=== PATIENT | male | born 1945 | race Caucasian/White ===

== ENCOUNTER 2023-12-02 18:36 | Observation (INO) | payer MEDICARE, MEDICAID, SELFPAY ==
[2023-12-02] VITALS (13 sets, daily range): BP systolic 124–156; BP diastolic 71–106; PULSE 71–93; RESP 18–30; TEMP 36.3–36.8; O2SAT 88–99; BMI 23.1
--- NOTE | 2023-12-02 19:01 | DI.RAD.S_ITS ---
PROCEDURE: XR CHEST 1V INDICATIONS: chest pain TECHNIQUE: One view of the chest was acquired. COMPARISON: [facility], CT, CT CHEST ABDOMEN PELVIS WITH CONTRAST, 07/05/2023, 12:55. FINDINGS: Surgical changes and devices: None. Lungs and pleura: Bilateral emphysematous changes. Scarring at the lung bases. Superimposed right basilar consolidation is not excluded. No pleural effusions or pneumothorax. No pleural effusion or pneumothorax. Mediastinum: Mediastinal contours appear normal. Heart size is normal. Bones and chest wall: No suspicious bony lesions. Overlying soft tissues appear unremarkable. IMPRESSION: Patchy right lower lobe opacities may be related to chronic emphysematous changes and scarring versus superimposed acute consolidation. Approved by: Louie Portillo M.D. on 12/02/2023 at 19:58
--- NOTE | 2023-12-02 19:01 | EKG_ITS ---
[address] [address] Test Date: 2023-12-02 Pat Name: Gurpreet Gill Department: Room: Gender: Male Quantitative Developer: ANJANA : 1945 Requested By: Order Number: [id number] Reading MD: Fabian Kemp Measurements Intervals [place] Rate: 80 P: [place]: QRS: -35 QRSD: 106 T: 43 QT: 416 QTc: 479 Interpretive Statements Sinus rhythm with frequent PACs Left axis deviation Incomplete right bundle branch block Cannot rule out Anterior infarct , age undetermined Electronically Signed On 12-05-2023 16:33:47 PDT by Fabian Kemp
--- NOTE | 2023-12-02 19:30 | PC.NURSE ---
pt recently moved here is on home O2 but has run out of oxygen, he called the company but they could not bring any out until Tue. pt is SOB d/t not having the oxygen but also admits to a recent weight gain of 20 lbs. pt speaking in complete sentences
[2023-12-02 19:40] LABS: Add Manual Diff / Slide Review NO; Basophils Absolute Auto 100 /uL (0-100); Basophils Percent Auto 0.6 % (0-2); Eosinophils Absolute Auto 100 /uL (0-450); Eosinophils Percent Auto 0.6 % (2-4); Hematocrit 40.1 % (41-53); Hemoglobin 13.1 g/dL (13.5-17.5); Lymphocytes Absolute Auto 800 /uL (1100-4500); Lymphocytes Percent Auto 6.5 % (25-40); Mean Corpuscular HGB Conc 32.6 % (30-36); Mean Corpuscular Hemoglobin 31.3 PG (26-34); Monocytes Absolute Auto 1200 /uL (0-900); Monocytes Percent Auto 9.7 % (3-14); Neutrophils Absolute Auto 10500 /uL (1500-7000); Neutrophils Percent Auto 82.6 % (50-75); Platelet Count 233 X10^3/uL (150-400); Red Blood Cell Count 4.18 X10^6/uL (4.5-5.9); Red Cell Distribution Width 14.4 % (11.6-14.8); White Blood Cell Count 12.7 X10^3/uL (4.5-11.0)
[2023-12-02 19:46] LABS: INR 1.2 (0.9-1.3); Prothrombin Time 13.8 SECONDS (9.4-12.5)
[2023-12-02 19:49] LABS: PTT Partial Thromboplastin Tim 31 SECONDS (25.1-36.5)
[2023-12-02 19:50] LABS: Alanine Aminotransferase 36 IU/L (<50); Albumin 3.7 g/dL (3.5-5.0); Albumin Globulin Ratio 1.2 (1.0-2.8); Alkaline Phosphatase 122 U/L (38-126); Aspartate Aminotransferase 39 IU/L (17-59); BUN Creatinine Ratio 29.5 (6-22); Bilirubin Total 1.1 mg/dL (0.2-1.3); Blood Urea Nitrogen 26 mg/dL (9-20); Calcium 8.7 mg/dL (8.4-10.2); Carbon Dioxide 34 mmol/L (22-32); Chloride 101 mmol/L (98-107); Creatine Kinase 148 U/L (55-170); Estimated Glomerular Filt Rate > 60 mL/min (>60); Globulin 3.2 g/dL (1.7-4.1); Glucose 168 mg/dL (80-110); HEMOLYSIS < 15 (0-50); Lipase 27 U/L (23-300); Magnesium 2.1 mg/dL (1.6-2.3); Potassium 4.2 mmol/L (3.4-5.1); Sodium 138 mmol/L (137-145); Total Protein 6.9 g/dL (6.3-8.2)
[2023-12-02 19:57] LABS: NT-proBNP (BNP-Adult 18+) 4490 pg/mL (<450)
[2023-12-02 20:01] LABS: Troponin I 0.035 ng/mL (0.01-0.034)
--- NOTE | 2023-12-02 21:12 | ED_ITS ---
HPI - General Adult General Chief complaint: Shortness of Breath/Dyspnea Stated complaint: sent by PCP, leg swelling, rapid heart beat Time Seen by Provider: 12/02/23 19:15 Source: patient, RN notes reviewed and old records reviewed Mode of arrival: Wheelchair Limitations: no limitations History of Present Illness HPI narrative: 78-year-old male with history of hypertension, COPD on home O2 typically 2 L. Patient states has had increasing shortness of breath for the past week, increasing swelling of his lower extremities and now weepage. Patient has had increasing O2 requirements 3-4 L for the past 3 days above his normal 1-2. Patient denies any fevers. States little bit of chest pressure which he states comes and goes has had this for very long time. He states little bit more short of breath. He states his work of breathing isn't significantly hard but he feels more weak and run down. No nausea or vomiting. He has been constipated but passing flatus. No new urinary symptoms. Patient states he has had some swelling in his legs but not this bad in the past. Patient does note that he ran out of his oxygen because he recently moved has been using it more than typical. He has called the company they will not delivered until Tuesday he states he did not realize they only deliver on Wednesdays here locally. Patient's home medications include albuterol, he was recently prescribed a Z-Cliff for COPD exacerbation of the 22 of November, Dulera, finasteride and tamsulosin. He has not on any water pills that he is aware of. No known cardiac history. No known drug allergies. Does continue to smoke a pack and a half daily. No regular alcohol, no recreational drugs. Dr. Lockhart through [facility] as his primary care physician. He is accompanied by his friend who is also acting as his transportation escort and who he moved in with. Related Data Home Medications Medication Instructions Recorded Confirmed albuterol sulfate 90 mcg/actuation 2 puff inhalation Q6H 12/03/23 12/03/23 aerosol inhaler mometasone-formoterol HFA 100 2 puff inhalation BID 12/03/23 12/03/23 mcg-5 mcg/actuation aerosol inhaler (Dulera) tamsulosin 0.4 mg capsule 0.8 mg PO DAILY 12/03/23 12/03/23 Allergies Allergy/AdvReac Type Severity Reaction Status Date / Time No Known Drug Allergies Allergy Verified 12/02/23 18:53 Review of Systems Review of Systems ROS Unobtainable: All systems reviewed & are unremarkable except as noted in HPI and below Patient History Social History household members: friend(s) Smoking Status: Current every day smoker alcohol intake: current Smoking Status: Current every day smoker Substance Use Type: does not use Exam Narrative Exam Narrative: GENERAL: Alert and oriented x three, elderly appearing male mild distress, HEENT: Head normocephalic, atraumatic, EOMI, pupils reactive, face symmetric, moist mucous membranes NECK: Supple, full range of motion CARDIOVASCULAR: Regular rate and rhythm without murmurs, rubs or gallops. 2+ bilateral lower extremity edema that tracked up above the knees, patient has some mild venous stasis changes. There is some slight weepage bilaterally. RESPIRATORY: Breath sounds equal bilaterally, scant wheeze bilaterally, no rhonchi or rales. No tachypnea. No accessory muscle use. Patient is on O2 at 4 L and at 92%. ABDOMEN: Soft, nontender. Normoactive bowel sounds all 4 quadrants. No guarding or rebound, rigidity, no mass : No CVA tenderness EXTREMITIES: Normal range of motion. Neurovascularly intact NEUROLOGICAL: Cranial nerves II through XII grossly intact. Moving all extremities SKIN: Warm, dry, no petechiae, no rashes or lesions. Initial Vital Signs Initial Vital Signs: Vital Signs Temperature 98.3 F 12/02/23 18:53 Pulse Rate 78 12/02/23 18:53 Respiratory Rate 28 H 12/02/23 18:53 Blood Pressure 130/71 12/02/23 18:53 Pulse Oximetry 91 12/02/23 18:53 Oxygen Delivery Method Room Air 12/02/23 18:53 Course Orders Ordered: ED Orders 12/02/23 21:28 Trop I [Troponin I] Stat Acetaminophen (Acetaminophen 325 Mg Tablet) 650 mg PO Q6H PRN PRN Reason: Fever/Mild Pain (1-3) Hydrocodone Bitart/Acetaminophen (Hydrocodone/Acet 5/325 Tablet) 1 tab PO Q4H PRN PRN Reason: Pain, Moderate (4-6) Albuterol (Albuterol 2.5 Mg/3 Ml Neb (Adult)) 2.5 mg INH [id number] [facility] Albuterol (Albuterol 2.5 Mg/3 Ml Neb (Adult)) 2.5 mg INH Q2HR PRN PRN Reason: Shortness Of Breath Aspirin (Aspirin Ec 81 Mg Tablet) 81 mg PO DAILY [facility] Budesonide (Budesonide 0.5 Mg/2 Ml Neb) 0.5 mg INH RTBID [facility] Enoxaparin Sodium (Enoxaparin 40 Mg/0.4 Ml Syringe) 40 mg SUBCUT DAILY [facility] Furosemide (Furosemide 40 Mg/4 Ml Vial) 40 mg IV Q12HR [facility] Magnesium Hydroxide (Magnesium Hydroxide 30 Ml Udc) 30 ml PO DAILY PRN PRN Reason: Constipation Naloxone HCl (Naloxone 0.4 Mg/Ml Vial) 0.2 mg IV Q2MIN PRN PRN Reason: Opiate Reversal Nicotine (Nicotine 14 Patch) 14 mg TOP DAILY [facility] Ondansetron HCl (Ondansetron 4 Mg/2 Ml Inj) 4 mg IV Q8HR PRN PRN Reason: Nausea And Vomiting Tamsulosin HCl (Tamsulosin 0.4 Mg Capsule) 0.8 mg PO DAILY [facility] Discontinued Medications Acetaminophen (Acetaminophen 325 Mg Tablet) 650 mg PO Q6H PRN PRN Reason: Fever/Mild Pain (1-3) Albuterol (Albuterol Hfa Mdi 60 Puff/8 Gm Inhaler) 2 puff INH Q6H [facility] Last Admin: 12/03/23 05:32 Dose: Not Given Documented By: Aspirin (Aspirin 81 Mg Chew Tab) 324 mg PO NOW ONE Stop: 12/02/23 19:02 Last Admin: 12/02/23 22:26 Dose: Not Given Documented By: JO ANN Enoxaparin Sodium (Enoxaparin 40 Mg/0.4 Ml Syringe) 40 mg SUBCUT DAILY [facility] Furosemide (Furosemide 40 Mg/4 Ml Vial) 40 mg IV NOW ONE Stop: 12/02/23 21:14 Last Admin: 12/02/23 21:24 Dose: 40 mg Documented By: JO ANN Ceftriaxone Sodium 2,000 mg/ (Sodium Chloride) 100 mls @ 200 mls/hr IV NOW ONE Stop: 12/02/23 22:30 Last Infusion: 12/02/23 23:29 Dose: 0 mls/hr Documented By: JO ANN Admin: 12/02/23 23:12 Dose: 200 mls/hr Documented By: JO ANN Naloxone HCl (Naloxone 0.4 Mg/Ml Vial) 0.2 mg IV Q2MIN PRN PRN Reason: Opiate Reversal Nicotine (Nicotine 21 Mg Patch) 21 mg TOP NOW ONE Stop: 12/02/23 21:30 Last Admin: 12/02/23 22:48 Dose: 21 mg Documented By: JO ANN Vital Signs Vital signs: Vital Signs - 8 hr 12/02/23 22:30 12/02/23 22:30 12/02/23 22:42 Pulse Rate 87 Respiratory Rate 25 H Blood Pressure 153/106 H 156/77 H Pulse Oximetry 97 Medical Decision Making Lab Data 12/02/23 19:14 12/02/23 19:14 Labs: Lab Results 12/02/23 12/02/23 Range/Units 19:14 21:28 WBC 12.7 H (4.5-11.0) X10^3/uL RBC 4.18 L (4.5-5.9) X10^6/uL Hgb 13.1 L (13.5-17.5) g/dL Hct 40.1 L (41-53) % MCV 96.0 (80-100) fL MCH 31.3 (26-34) PG MCHC 32.6 (30-36) % RDW 14.4 (11.6-14.8) % Plt Count 233 (150-400) X10^3/uL Neut % (Auto) 82.6 H (50-75) % Lymph % (Auto) 6.5 L (25-40) % [place] % (Auto) 9.7 (3-14) % Eos % (Auto) 0.6 L (2-4) % Baso % (Auto) 0.6 (0-2) % Neut # (Auto) 43618 H (8653-9737) /uL Lymph # (Auto) 800 L (8432-6828) /uL [place] # (Auto) 1200 H (0-900) /uL Eos # (Auto) 100 (0-450) /uL Baso # (Auto) 100 (0-100) /uL PT 13.8 H (9.4-12.5) SECONDS INR 1.2 (0.9-1.3) APTT 31 (25.1-36.5) SECONDS Sodium 138 (137-145) mmol/L Potassium 4.2 (3.4-5.1) mmol/L Chloride 101 (98-107) mmol/L Carbon Dioxide 34 H (22-32) mmol/L BUN 26 H (9-20) mg/dL Creatinine 0.88 (0.66-1.25) mg/dL Estimated GFR > 60 (>60) mL/min BUN/Creatinine Ratio 29.5 H (6-22) Glucose 168 H (80-110) mg/dL Calcium 8.7 (8.4-10.2) mg/dL Magnesium 2.1 (1.6-2.3) mg/dL Total Bilirubin 1.1 (0.2-1.3) mg/dL AST 39 (17-59) IU/L ALT 36 (<50) IU/L Alkaline Phosphatase 122 (38-126) U/L Total Creatine Kinase 148 (55-170) U/L Troponin I 0.035 H 0.037 H (0.01-0.034) ng/mL NT-Pro-B Natriuret Pep 4490 H (<450) pg/mL Total Protein 6.9 (6.3-8.2) g/dL Albumin 3.7 (3.5-5.0) g/dL Globulin 3.2 (1.7-4.1) g/dL Albumin/Globulin Ratio 1.2 (1.0-2.8) Lipase 27 (23-300) U/L Imaging Data Chest x-ray: Radiologist's Impression: Gurpreet Gill??78??M??1945 ? Allergy/Adv: No Known Drug Allergies Close Chest X-Ray (Signed) Louie Portillo - 12/02/23 Launch?[address] [address] XRay Report Signed Patient: Gurpreet Gill MR#: [id number] : 1945 Acct:[id number] Age/Sex: 78 / M Date of Service: 12/02/23 Loc: ED Accession Number: [id number] Procedure: XR chest 1V Ordering Provider: Gifty Vera D.O. PROCEDURE: XR CHEST 1V INDICATIONS: chest pain TECHNIQUE: One view of the chest was acquired. COMPARISON: [facility], CT, CT CHEST ABDOMEN PELVIS WITH CONTRAST, 07/05/2023, 12:55. FINDINGS: Surgical changes and devices: None. Lungs and pleura: Bilateral emphysematous changes. Scarring at the lung bases. Superimposed right basilar consolidation is not excluded. No pleural effusions or pneumothorax. No pleural effusion or pneumothorax. Mediastinum: Mediastinal contours appear normal. Heart size is normal. Bones and chest wall: No suspicious bony lesions. Overlying soft tissues appear unremarkable. IMPRESSION: Patchy right lower lobe opacities may be related to chronic emphysematous changes and scarring versus superimposed acute consolidation. Approved by: Louie Portillo M.D. on 12/02/2023 at 19:58 ECG Data Attestation: I personally reviewed and interpreted this ECG as follows: Interpretation: AFib rate 80 QRS of 106 QTC 479, no acute ST elevation, patient appears to have some motion artifact and lateral leads incomplete right bundle-branch. No clear ST elevation depression appreciated. MDM Narrative Medical decision making narrative: Labs show white count of 12.7 hemoglobin of 13 platelets of 233, predominance of neutrophils. INR is 1.2. Electrolytes are appropriate except for CO2 of 34 BUN 26 creatinine 0.88 glucose is 168 normal LFTs Mag calcium. Troponin is 0.035 no priors for comparison BNP is 4 490 also no priors for comparison. Patient appears to likely be in congestive heart failure, will repeat troponin to make sure not trending upwards to positive although I suspect there maybe a component of demand ischemia. Repeat troponin EKG shows AFib but rate controlled. Chest x-ray shows some patchy possible consolidation versus emphysematous changes. Patient does have reported history of COPD. Patient feels somewhat improved on O2 here in the department, was given a dose of Lasix. Spoke with hospitalist, Dr. Diaz about observation while establishing patient with oxygen, diuresis for increasing O2 requirements with COPD, CHF exacerbation, elevated BNP Discharge Plan Departure Patient Disposition: Admitted as Observation Clinical Impression: Acute exacerbation of CHF (congestive heart failure), COPD (chronic obstructive pulmonary disease) Admit Date/Time: 12/02/23 22:43 Admit Provider: Lon Diaz
[2023-12-02] MEDS: FUROSEMIDE 40 MG/4 ML VIAL IV (21:24)
[2023-12-02 21:56] LABS: Troponin I 0.037 ng/mL (0.01-0.034)
[2023-12-02] MEDS: NICOTINE 21 MG PATCH TOP (22:48)
[2023-12-02] MEDS: cefTRIAXone 2,000 MG in SODIUM CHLORIDE 0.9% 100 ML 200 MG IV (23:12)
[2023-12-03] VITALS (9 sets, daily range): BP systolic 98–127; BP diastolic 65–82; PULSE 66–109; RESP 16–24; TEMP 36.2–36.8; O2SAT 92–97
--- NOTE | 2023-12-03 04:36 | DI.ECHO.S_ITS ---
[place] [facility]+ [facility] : : [address] : : [place] : : [address] : : Phone: [phone] Echocardiogram Report + + :Name: DACIA WILSON Study Date: 12/03/2023 Height: 71.5 in: :[facility] ReadingLocation: Weight: 157 lb : : Gender: Male BSA: 1.9 m2 : :: 1945 Age: 78 yrs BP: 138/94 mmHg: :Reason For Study: CONGESTIVE HEART FAILURE : :Ordering Physician: MESFIN, : :RANDY Performed By: Stacey Gomez : :Referring: RANDY TOURE : + + Interpretation Summary Sinus rhythm with very frequent PACs and runs of SVT. Normal LV size and wall thickness. Mild global hypokinesis with mildly reduced LV systolic function estimated at 45-50%. Severe right atrial enlargement and mild right atrial enlargement.. Otherwise normal chamber sizes. Aortic valve leaflets are not well-seen but demonstrates reduced leaflet excursion. Cannot definitively exclude bicuspid aortic valve with pseudo raphae connecting right and left coronary leaflets. There is moderate associated aortic regurgitation And mild aortic stenosis with peak velocity of 2.6 m/s and mean gradient of 14 mmHg. Moderate central tricuspid regurgitation. Estimated PA systolic pressure is 75 mm Hg assuming RA pressure of 15 mm Hg. Borderline enlarged ascending aorta measuring 3.9 cm in diameter. No prior study available for comparison. Procedure: A two-dimensional transthoracic echocardiogram with color flow and Doppler was performed. The study quality was technically adequate. There is no prior echocardiogram noted for this patient. The patient was in atrial fibrillation with heart rates between 79-115 bpm during the exam. Left Ventricle: The left ventricle is normal in size. Left ventricular wall thickness is mildly increased. The ejection fraction is estimated to be 45- 50%. Diastolic function could not be accurately assessed due to atrial fibrillation. Right Ventricle: The right ventricle is mild to moderately dilated. Atria: The left atrium is mildly dilated. The right atrium is severely dilated. There is no Doppler evidence for an interatrial shunt. Mitral Valve: The mitral valve leaflets appear mildly thickened, but open well. There is mild mitral regurgitation. Aortic Valve: The aortic valve is not well visualized. The aortic valve is mildly calcified. There is mild aortic stenosis. The peak aortic velocity is 2.6 m/sec. The aortic valve mean gradient is 14 mmHg. The calculated aortic valve area is 1.5 cm2. There is moderate aortic regurgitation. Tricuspid Valve: The tricuspid valve leaflets are thin and pliable. There is moderate tricuspid regurgitation. The right ventricular systolic pressure is estimated to be at least 75 mmHg based on an estimated right atrial pressure of 15 mm Hg. Pulmonic Valve: The pulmonic valve leaflets are thin and pliable; valve motion is normal. There is no pulmonic valvular regurgitation. Great Vessels: The aortic root is normal size. The ascending aorta is at the upper limits of normal in size. The IVC is dilated (diameter is greater than 2.1 cm) and it collapses less than 50% with a sniff. This suggests a high right atrial pressure of 15 mm Hg. Pericardium/ Pleura There is no pericardial effusion. There is no pleural effusion. MMode/2D Measurements & Calculations LVIDd: 5.7 cm LVOT diam: 2.1 cm LVIDs: 4.0 cm Ao root diam: 3.8 cm FS: 29.8 % asc Aorta Diam: 3.9 cm IVSd: 1.2 cm LVPWd: 0.99 cm LV delgado. diameter/BSA (cm/m^2): 3.0 LV sys. diameter/BSA (cm/m^2): 2.1 LA A2 area: 25.9 cm2 RA long axis: 6.5 cm LA A4 area: 17.6 cm2 RA area: 33.5 cm2 LA length (vol): 5.8 cm RA vol: 147.2 ml LA vol: 66.2 ml RA : 76.9 ml/m2 LA vol index: 34.6 ml/m2 IVC diam: 2.1 cm RVD1 (basal): 4.6 cm RVD2 (mid): 3.3 cm TAPSE: 1.7 cm Doppler Measurements & Calculations Ao V2 max: 256.0 cm/sec LVOT Max Jerry: 109.8 cm/sec Ao V2 mean: 169.3 cm/sec LV V1 max P.8 mmHg Ao max P.7 mmHg LV V1 VTI: 18.4 cm Ao mean P.3 mmHg SANDEEP(I,D): 1.7 cm2 Ao V2 VTI: 39.5 cm SANDEEP(V,D): 1.5 cm2 sev ratio: 0.47 SANDEEP indexed to BSA (cm^2/m^2): 0.87 MV E max jerry: 77.7 cm/sec TR max jerry: 385.7 cm/sec MV A max jerry: 96.6 cm/sec TR max P.5 mmHg MV E/A: 0.80 PA V2 max: 106.6 cm/sec Med Peak E' Jerry: 6.6 cm/sec PA V2 mean: 66.7 cm/sec E/E' med: 11.7 PA mean P.1 mmHg Lat Peak E' Jerry: 10.9 cm/sec PA pr(Accel): 44.7 mmHg E/E' lat: 7.1 E/e' average: 9.4 MV dec time: 0.20 sec SV(LVOT): 65.5 ml Electronically signed by: Magali Carmona M.D. on Reading Physician:12/03/2023 01:03 PM
--- NOTE | 2023-12-03 04:41 | PM.HP.1 ---
History of Present Illness History of Present Illness Date Patient Seen: 12/03/23 Time Patient Seen: 01:15 Chief complaint: sent by PCP, leg swelling, rapid heart beat Narrative: 78 years old male with a past medical history of COPD on chronic home oxygen usually at 2 L, hypertension, chronic smoking and other medical issues presented emergency room for worsening shortness of breath. He is new to the area and lives with roommate. Apparently he has been increasingly short of breath with progressive lower extremity edema/dyspnea on exertion with significant orthopnea needing 2 pillows. Does have cough that is productive with whitish mucoid sputum. Denies any fever episodes. No chest pain. Denies any dizziness or loss of consciousness. Denies any nausea or vomiting. Apparently, he has needed increasing oxygen for the past 3 days and now out of oxygen from his cylinder but does have a oxygen concentrator which he could not use properly. Reports his oxygen tank will not be delivered until Tuesday. Tried nebulizers with inhalers and also was recently given a course of Z-Cliff in the outpatient setting with no clinical improvement. Denies any history of congestive heart failure and does not follow any fluid restriction or sodium restriction. In the ED noted to have significant lower extremity edema with decreased lung sounds at the base and hypoxemia with an O2 saturation of 92% on 4 L. He was tachypneic at 28. Subsequent workup included WBC at 12,700 with a hemoglobin of 13.1. Sodium of 138 with a BUN of 26 and a creatinine of 0.8. BNP was 4490. Chest x-ray was concerning for pulmonary edema but cannot rule out a possible right lower lobe opacities. Troponin was 0.035. Patient was given a dose of IV Lasix with nebulizers and initiated on oxygen supplementation in addition to IV Rocephin. Patient was admitted for further evaluation [facility] Social History household members: friend(s) Smoking Status: Current every day smoker alcohol intake: current Meds Home Medications and Allergies Home Medications Medication Instructions Recorded Confirmed Type albuterol sulfate 90 mcg/actuation 2 puff inhalation Q6H 12/03/23 12/03/23 History aerosol inhaler mometasone-formoterol HFA 100 2 puff inhalation BID 12/03/23 12/03/23 History mcg-5 mcg/actuation aerosol inhaler (Dulera) tamsulosin 0.4 mg capsule 0.8 mg PO DAILY 12/03/23 12/03/23 History Allergies Allergy/AdvReac Type Severity Reaction Status Date / Time No Known Drug Allergies Allergy Verified 12/02/23 18:53 Review of Systems Review of Systems Narrative: 12 point review of system is negative unless otherwise stated in history of present illnes Exam Vital Signs (past 8 hours): - 12/02/23 21:00 12/02/23 21:30 12/02/23 21:30 Temperature Pulse Rate 79 92 H Respiratory Rate 29 H 26 H Blood Pressure 128/90 Pulse Oximetry 96 97 Oxygen Flow Rate 12/02/23 22:00 12/02/23 22:00 12/02/23 22:30 Temperature Pulse Rate 77 Respiratory Rate 26 H Blood Pressure 144/95 H 153/106 H Pulse Oximetry 98 Oxygen Flow Rate 12/02/23 22:30 12/02/23 22:42 12/02/23 23:01 Temperature Pulse Rate 87 Respiratory Rate 25 H Blood Pressure 156/77 H 138/94 H Pulse Oximetry 97 Oxygen Flow Rate 12/02/23 23:01 12/02/23 23:25 12/03/23 04:30 Temperature 97.3 F L 97.2 F L Pulse Rate 83 71 66 Respiratory Rate 18 18 16 Blood Pressure 138/82 127/71 Pulse Oximetry 98 96 97 Oxygen Flow Rate 2 Oxygen Delivery Method Room Air Oxygen Flow Rate 2 Narrative Exam Narrative: Air entry decreased bilaterally at the lung base. 2+ edema pitting noted bilaterally in the lower extremities Objective Labs 12/02/23 19:14 12/02/23 19:14 Labs: Laboratory Results - last 24 hr 12/02/23 12/02/23 19:14 21:28 WBC 12.7 H RBC 4.18 L Hgb 13.1 L Hct 40.1 L MCV 96.0 MCH 31.3 MCHC 32.6 RDW 14.4 Plt Count 233 Neut % (Auto) 82.6 H Lymph % (Auto) 6.5 L [place] % (Auto) 9.7 Eos % (Auto) 0.6 L Baso % (Auto) 0.6 Neut # (Auto) 13826 H Lymph # (Auto) 800 L [place] # (Auto) 1200 H Eos # (Auto) 100 Baso # (Auto) 100 PT 13.8 H INR 1.2 APTT 31 Sodium 138 Potassium 4.2 Chloride 101 Carbon Dioxide 34 H BUN 26 H Creatinine 0.88 Estimated GFR > 60 BUN/Creatinine Ratio 29.5 H Glucose 168 H Calcium 8.7 Magnesium 2.1 Total Bilirubin 1.1 AST 39 ALT 36 Alkaline Phosphatase 122 Total Creatine Kinase 148 Troponin I 0.035 H 0.037 H NT-Pro-B Natriuret Pep 4490 H Total Protein 6.9 Albumin 3.7 Globulin 3.2 Albumin/Globulin Ratio 1.2 Lipase 27 Assessment & Plan Assessment & Plan narrative: 78 years old male with a past medical history of COPD on chronic home oxygen usually at 2 L, hypertension, chronic smoking and other medical issues presented emergency room for worsening shortness of breath. He is new to the area and lives with roommate. Apparently he has been increasingly short of breath with progressive lower extremity edema/dyspnea on exertion with significant orthopnea needing 2 pillows. Does have cough that is productive with whitish mucoid sputum. Denies any fever episodes. No chest pain. Denies any dizziness or loss of consciousness. Denies any nausea or vomiting. Apparently, he has needed increasing oxygen for the past 3 days and now out of oxygen from his cylinder but does have a oxygen concentrator which he could not use properly. Reports his oxygen tank will not be delivered until Tuesday. Tried nebulizers with inhalers and also was recently given a course of Z-Cliff in the outpatient setting with no clinical improvement. Denies any history of congestive heart failure and does not follow any fluid restriction or sodium restriction. In the ED noted to have significant lower extremity edema with decreased lung sounds at the base and hypoxemia with an O2 saturation of 92% on 4 L. He was tachypneic at 28. Subsequent workup included WBC at 12,700 with a hemoglobin of 13.1. Sodium of 138 with a BUN of 26 and a creatinine of 0.8. BNP was 4490. Chest x-ray was concerning for pulmonary edema but cannot rule out a possible right lower lobe opacities. Troponin was 0.035. Patient was given a dose of IV Lasix with nebulizers and initiated on oxygen supplementation in addition to IV Rocephin. Patient was admitted for further evaluation 1. Acute approximate respiratory failure in the setting of COPD history/chronic respiratory failure on clinical suspicion for congestive heart failure. Continue the nebulizers with oxygen supplementation/IV diuresis and trend closely 2. Congestive heart failure appears to be new onset and type unknown based on the history and the clinical exam. Continue IV diuresis for now. Fluid restriction/watching the intake output and daily weight. Follow-up with an echocardiogram and monitor on the telemetry. EKG shows A-fib which appears to be new for the patient. Heart failure education with the evaluation by cardiology eventually 3 COPD. Appears to be chronic and stable per resume the home inhalers/nebulizers/inhaled steroids. Continues to smoke and advised to quit smoking. Continue nicotine patch. Case management/social service involvement for home oxygen needs 4 atrial fibrillation it appears to be new onset in the ED. Repeat EKG and follow-up echocardiogram monitor on the telemetry. Continue aspirin for now and evaluate the need for anticoagulation after review by cardiology. Medication nonadherence may be a risk factor in addition to fall risk 5 BPH resume the home Flomax 6 DVT prophylaxis will be Lovenox Patient will be admitted under inpatient status given the new onset heart failure with the need for IV diuresis in addition to nebulizers/oxygen supplementations and expected low blood sugar event overnight
[2023-12-03 07:19] LABS: Add Manual Diff / Slide Review NO; Basophils Absolute Auto 100 /uL (0-100); Basophils Percent Auto 0.9 % (0-2); Eosinophils Absolute Auto 100 /uL (0-450); Eosinophils Percent Auto 1.1 % (2-4); Hematocrit 39.7 % (41-53); Lymphocytes Absolute Auto 900 /uL (1100-4500); Lymphocytes Percent Auto 7.4 % (25-40); Mean Corpuscular HGB Conc 32.7 % (30-36); Mean Corpuscular Hemoglobin 31.2 PG (26-34); Mean Corpuscular Volume 95.6 fL (80-100); Monocytes Absolute Auto 1400 /uL (0-900); Neutrophils Absolute Auto 9000 /uL (1500-7000); Neutrophils Percent Auto 78.6 % (50-75); Platelet Count 222 X10^3/uL (150-400); Red Blood Cell Count 4.15 X10^6/uL (4.5-5.9); Red Cell Distribution Width 14.1 % (11.6-14.8); White Blood Cell Count 11.4 X10^3/uL (4.5-11.0)
[2023-12-03 07:27] LABS: INR 1.3 (0.9-1.3); Prothrombin Time 14.9 SECONDS (9.4-12.5)
[2023-12-03 07:32] LABS: Alanine Aminotransferase 32 IU/L (<50); Albumin 3.3 g/dL (3.5-5.0); Albumin Globulin Ratio 1.2 (1.0-2.8); Alkaline Phosphatase 118 U/L (38-126); Aspartate Aminotransferase 33 IU/L (17-59); Bilirubin Total 1.2 mg/dL (0.2-1.3); Blood Urea Nitrogen 21 mg/dL (9-20); Calcium 8.3 mg/dL (8.4-10.2); Carbon Dioxide 37 mmol/L (22-32); Chloride 99 mmol/L (98-107); Estimated Glomerular Filt Rate > 60 mL/min (>60); Globulin 2.8 g/dL (1.7-4.1); Glucose 93 mg/dL (80-110); HEMOLYSIS < 15 (0-50); Magnesium 2.1 mg/dL (1.6-2.3); Phosphorous 3.2 mg/dL (2.3-3.7); Potassium 3.4 mmol/L (3.4-5.1); Sodium 137 mmol/L (137-145); Total Protein 6.1 g/dL (6.3-8.2)
[2023-12-03 07:37] LABS: Appearance Urine UA CLEAR; Bilirubin Urine UA NEGATIVE (NEGATIVE); Color Urine UA YELLOW; Glucose Urine UA NEGATIVE (Negative); Ketones Urine UA NEGATIVE (NEGATIVE); Leukocyte Esterase Urine UA 2+ (NEGATIVE); Nitrite Urine UA NEGATIVE (Negative); Occult Blood Urine UA TRACE-INTACT (Negative); Protein Urine UA NEGATIVE (Negative); Specific Gravity Urine UA 1.015 (1.000-1.035); pH Urine UA 7.5 (4.5-8.0)
[2023-12-03 07:42] LABS: NT-proBNP (BNP-Adult 18+) 3780 pg/mL (<450)
[2023-12-03 07:44] LABS: Troponin I 0.041 ng/mL (0.01-0.034)
[2023-12-03] MEDS: BUDESONIDE 0.5 MG/2 ML NEB INH ×2 (07:47→19:13)
[2023-12-03] MEDS: ALBUTEROL 2.5 MG/3 ML NEB (ADULT) INH ×5 (07:47→22:40)
[2023-12-03 07:56] LABS: Bacteria Urine Occasional (0-1); RBC Urine 0-1/HPF (0-5/HPF); Squamous Epithelial Cell Urine None Seen (0-5/HPF); Urine Volume 10mL (spun); WBC Urine 5-10/HPF (0-5/HPF)
[2023-12-03 07:57] LABS: Culture Indicated Urine Specimen Cultured
[2023-12-03] MEDS: NICOTINE 14 PATCH 14 MG TOP (09:49)
[2023-12-03] MEDS: TAMSULOSIN 0.4 MG CAPSULE 0.8 MG PO (09:50)
[2023-12-03] MEDS: ENOXAPARIN 40 MG/0.4 ML SYRINGE SUBCUT (09:50)
[2023-12-03] MEDS: ASPIRIN EC 81 MG TABLET PO (09:51)
[2023-12-03] MEDS: ACETAMINOPHEN 325 MG TABLET 650 MG PO ×2 (09:51→18:04)
[2023-12-03] MEDS: HYDROCODONE/ACET 5/325 TABLET 1 TAB PO ×3 (09:52→18:04)
--- NOTE | 2023-12-03 11:55 | CM.SWNOTE ---
Addendum entered by YOKO Virk 12/03/23 12:03: ED LOGISTICS/SHIPPER Note This LOGISTICS/SHIPPER called Gurpreet to f/u and provide resources for housing and food. LOGISTICS/SHIPPER called and Gurpreet's friend Jonathan answered the phone. He informed this LOGISTICS/SHIPPER that they are not in need of resources and is working with [employer]. LOGISTICS/SHIPPER thanked him for his time and this was the end of the interaction. MAUREEN Read Original Note: ED LOGISTICS/SHIPPER Note This LOGISTICS/SHIPPER called Gur[employer]reet to f/u and provide resources for housing and food. LOGISTICS/SHIPPER called and Gurpreet answered the phone. He informed this LOGISTICS/SHIPPER that he is not in need of resources and is working with [employer]. LOGISTICS/SHIPPER thanked him for his time and this was the end of the interaction. MAUREEN Read
[2023-12-03] MEDS: FUROSEMIDE 40 MG/4 ML VIAL IV ×2 (12:48→23:50)
--- NOTE | 2023-12-03 13:27 | P.HP_ITS ---
History of Present Illness History of Present Illness Date Patient Seen: 12/03/23 Time Patient Seen: 07:55 Date of Onset of Symptoms: 12/02/23 Chief complaint: sent by PCP, leg swelling, rapid heart beat Narrative: Admission notes: 78 years old male with a past medical history of COPD on chronic home oxygen usually at 2 L, hypertension, chronic smoking and other medical issues presented emergency room for worsening shortness of breath. He is new to the area and lives with roommate. Apparently he has been increasingly short of breath with progressive lower extremity edema/dyspnea on exertion with significant orthopnea needing 2 pillows. Does have cough that is productive with whitish mucoid sputum. Denies any fever episodes. No chest pain. Denies any dizziness or loss of consciousness. Denies any nausea or vomiting. Apparently, he has needed increasing oxygen for the past 3 days and now out of oxygen from his cylinder but does have a oxygen concentrator which he could not use properly. Reports his oxygen tank will not be delivered until Tuesday. Tried nebulizers with inhalers and also was recently given a course of Z-Cliff in the outpatient setting with no clinical improvement. Denies any history of congestive heart failure and does not follow any fluid restriction or sodium restriction. In the ED noted to have significant lower extremity edema with decreased lung sounds at the base and hypoxemia with an O2 saturation of 92% on 4 L. He was tachypneic at 28. Subsequent workup included WBC at 12,700 with a hemoglobin of 13.1. Sodium of 138 with a BUN of 26 and a creatinine of 0.8. BNP was 4490. Chest x- ray was concerning for pulmonary edema but cannot rule out a possible right lower lobe opacities. Troponin was 0.035. Patient was given a dose of IV Lasix with nebulizers and initiated on oxygen supplementation in addition to IV Rocephin. Patient was admitted for further evaluation Interval history: The patient experienced a 4.7 L net negative diuresis overnight and reported feeling significantly better in the morning. Echocardiogram returned showing severe pulmonary hypertension with moderate left ventricular dysfunction, and significant ectopy with frequent PACs and SVT had moderate aortic insufficiency and mild AI. He continued to feel significantly weak albeit improved. He has also had significant cough and sputum production over the past few days, with chest x-ray noting findings consistent with pneumonia. [facility] Social History household members: friend(s) Smoking Status: Current every day smoker alcohol intake: current Meds Home Medications and Allergies Home Medications Medication Instructions Recorded Confirmed Type albuterol sulfate 90 mcg/actuation 2 puff inhalation Q6H 12/03/23 12/03/23 History aerosol inhaler mometasone-formoterol HFA 100 2 puff inhalation BID 12/03/23 12/03/23 History mcg-5 mcg/actuation aerosol inhaler (Dulera) tamsulosin 0.4 mg capsule 0.8 mg PO DAILY 12/03/23 12/03/23 History Allergies Allergy/AdvReac Type Severity Reaction Status Date / Time No Known Drug Allergies Allergy Verified 12/02/23 18:53 Review of Systems Review of Systems ROS: Yes All systems reviewed with the patient and are negative except as otherwise documented Exam Vital Signs (past 8 hours): - 12/03/23 07:46 12/03/23 07:55 12/03/23 08:00 Temperature 98.1 F Pulse Rate 66 78 Respiratory Rate 18 16 Blood Pressure 109/67 Pulse Oximetry 96 92 Oxygen Delivery Method Nasal Cannula Nasal Cannula Oxygen Flow Rate 2 2 Oxygen Delivery Method Nasal Cannula Oxygen Flow Rate 2 Narrative Exam Narrative: GENERAL: This is a cachectic thin male, extremely pleasant, in no apparent distress. HEAD: Atraumatic. Normocephalic. No temporal or scalp tenderness. EYES: Pupils equal round and reactive. Extraocular motions intact. No scleral icterus. No injection or drainage. ENT: Mucous membranes pink and moist. NECK: Trachea midline. No JVD, bruits or lymphadenopathy. Supple, nontender, no meningeal signs. CARDIOVASCULAR: Regular rate and rhythm without murmurs, gallops, or rubs. RESPIRATORY: Decreased breath sounds bilateral lung bases, scattered rhonchi, mid to end expiratory wheeze. GASTROINTESTINAL: Abdomen soft, non-tender, nondistended. EXTREMITIES: 1+ edema. BACK: Nontender without deformity or crepitance. No flank tenderness. NEUROLOGIC: Alert, oriented, speech fluent, full upper and lower motor strength, no focal deficits evident. DERMATOLOGIC: No rashes or skin lesions. Objective ECG Impression: EKG 12/01/2020: Sinus rhythm with frequent PACs at 80 beats per minute, incomplete right bundle-branch block, Q-waves in leads V1 and V2, cannot rule out old anterior myocardial infarction, no comparison available. Imaging Chest x-ray: Radiologist's impression: Patchy right lower lobe opacities may be related to chronic emphysematous changes and scarring versus superimposed acute consolidation. Echocardiogram: Radiologist's impression: Per Dr. Magali Carmona [facility], verbally by phone and by this dictated report: Sinus rhythm with very frequent PACs and runs of SVT. Normal LV size and wall thickness. Mild global hypokinesis with mildly reduced LV systolic function estimated at 45-50%. Severe right atrial enlargement and mild right atrial enlargement.. Otherwise normal chamber sizes. Aortic valve leaflets are not well-seen but demonstrates reduced leaflet excursion. Cannot definitively exclude bicuspid aortic valve with pseudo raphae connecting right and left coronary leaflets. There is moderate associated aortic regurgitation And mild aortic stenosis with peak velocity of 2.6 m/s and mean gradient of 14 mmHg. Moderate central tricuspid regurgitation. Estimated PA systolic pressure is 75 mm Hg assuming RA pressure of 15 mm Hg. Borderline enlarged ascending aorta measuring 3.9 cm in diameter. No prior study available for comparison. Labs 12/03/23 07:08 12/03/23 07:08 Labs: Laboratory Results - last 24 hr 12/02/23 12/02/23 12/03/23 19:14 21:28 06:10 WBC 12.7 H RBC 4.18 L Hgb 13.1 L Hct 40.1 L MCV 96.0 MCH 31.3 MCHC 32.6 RDW 14.4 Plt Count 233 Neut % (Auto) 82.6 H Lymph % (Auto) 6.5 L [place] % (Auto) 9.7 Eos % (Auto) 0.6 L Baso % (Auto) 0.6 Neut # (Auto) 02197 H Lymph # (Auto) 800 L [place] # (Auto) 1200 H Eos # (Auto) 100 Baso # (Auto) 100 PT 13.8 H INR 1.2 APTT 31 Sodium 138 Potassium 4.2 Chloride 101 Carbon Dioxide 34 H BUN 26 H Creatinine 0.88 Estimated GFR > 60 BUN/Creatinine Ratio 29.5 H Glucose 168 H Calcium 8.7 Phosphorus Magnesium 2.1 Total Bilirubin 1.1 AST 39 ALT 36 Alkaline Phosphatase 122 Total Creatine Kinase 148 Troponin I 0.035 H 0.037 H NT-Pro-B Natriuret Pep 4490 H Total Protein 6.9 Albumin 3.7 Globulin 3.2 Albumin/Globulin Ratio 1.2 Lipase 27 Urine Color Yellow Urine Appearance Clear Urine pH 7.5 Ur Specific [place] 1.015 Urine Protein Negative Urine Glucose (UA) Negative Urine Ketones Negative Urine Occult Blood Trace-intact Urine Nitrate Negative Urine Bilirubin Negative Urine Urobilinogen 1.0 Ur Leukocyte Esterase 2+ H Urine RBC 0-1/hpf Urine WBC 5-10/hpf H Ur Squamous Epith Cells None seen Urine Bacteria Occasional (0-1) Ur Culture Indicated? Specimen cultured Vol Urine Centrifuged 10ml (spun) 12/03/23 07:08 WBC 11.4 H RBC 4.15 L Hgb 13.0 L Hct 39.7 L MCV 95.6 MCH 31.2 MCHC 32.7 RDW 14.1 Plt Count 222 Neut % (Auto) 78.6 H Lymph % (Auto) 7.4 L [place] % (Auto) 12.0 Eos % (Auto) 1.1 L Baso % (Auto) 0.9 Neut # (Auto) 9000 H Lymph # (Auto) 900 L [place] # (Auto) 1400 H Eos # (Auto) 100 Baso # (Auto) 100 PT 14.9 H INR 1.3 APTT Sodium 137 Potassium 3.4 Chloride 99 Carbon Dioxide 37 H BUN 21 H Creatinine 0.75 Estimated GFR > 60 BUN/Creatinine Ratio 28.0 H Glucose 93 Calcium 8.3 L Phosphorus 3.2 Magnesium 2.1 Total Bilirubin 1.2 AST 33 ALT 32 Alkaline Phosphatase 118 Total Creatine Kinase Troponin I 0.041 H NT-Pro-B Natriuret Pep 3780 H Total Protein 6.1 L Albumin 3.3 L Globulin 2.8 Albumin/Globulin Ratio 1.2 Lipase Urine Color Urine Appearance Urine pH Ur Specific [place] Urine Protein Urine Glucose (UA) Urine Ketones Urine Occult Blood Urine Nitrate Urine Bilirubin Urine Urobilinogen Ur Leukocyte Esterase Urine RBC Urine WBC Ur Squamous Epith Cells Urine Bacteria Ur Culture Indicated? Vol Urine Centrifuged Assessment & Plan Assessment & Plan narrative: 1. Acute systolic congestive heart failure. Treat with IV diuresis and monitor serial electrolytes, renal function and clinical status. 2. Severe pulmonary hypertension, likely secondary to underlying COPD. 3. Right lower lobe pneumonia, likely community acquired. Continue IV ceftriaxone and azithromycin. 4. Acute hypoxic respiratory failure due to numbers 1, 2 and 3. 5. Chronic hypoxic respiratory failure due to COPD and pulmonary hypertension. 6. Frequent PACs. This was reported as possible atrial fibrillation though there are clear P waves before each QRS on his EKG. Continue to monitor. 7. BPH. Continue routine home tamsulosin. 8. DVT prophylaxis. Continue Lovenox. 9. Code status: Full code. The patient affirms this in discussion on admission. The patient is admitted inpatient status as he will require care, for ongoing IV diuresis and medical stabilization. His case is reviewed with nursing and case management in conference today. Time Spent With Patient Time with patient: 30 to 49 minutes with 50% spent counseling/coordinating care Quality VTE Deep Vein Thrombosis/Pulmonary Embolism Present on Admission: No MIPS - Admit I confirm the patient?s Advance Care Plan is present, Code status is documented, Surrogate decision maker is in patient?s record [If Yes, STOP here]: Yes MIPS - Meds 'Current medications' to include all prescriptions, [id number] products, herbals, cannabis/cannabidiol products, and vitamin/mineral/dietary (nutritional) supplements. I have utilized all available resources to obtain, update, or review the patient?s current medications. [If Yes, STOP here]: Yes PROFEE Charge Codes Initial inpatient/observation care: 00440
[2023-12-03] MEDS: AZITHROMYCIN 500 MG in DEXTROSE 5% IN WATER 250 ML 250 MG IV (15:20)
[2023-12-03] MEDS: POTASSIUM CHLORIDE 20 MEQ TAB PO ×2 (15:21→17:06)
--- NOTE | 2023-12-03 15:29 | CM.DANOTE ---
Patient is a 78 yo male who was admitted on 12/02/23 for SOB/COPD/CHF. Pt has [facility] and [facility] for insurance and his PCP is not listed as pt just moved here recently. EMR reviewed. Per MD, pt with hx of COPD and hypotension and has home O2 at baseline 2L and admitted for CHF, COPD exac, pneumonia. Pt not yet medically stable to discharge and needing to confirm pt has home oxygen and concentrator to get home safely. SW called [facility] and updated on MD concerns and requested that they follow up with pt and his [place] [facility] to confirm pt set up to get home safely from oxygen. They kindly will discuss with pt and call his O2 supplier. SW met briefly bedside with pt as he was drowsy and wanting to sleep and explained role and pt confirms he now lives in [place] with a roommate/friend and is independent with ADLs at baseline and has home oxygen but has been trying to get his concentrator refilled. Pt denies any recent hx of HH or SNF and is working to get established with local PCP. Pt does not anticipate any needs at d/c at this time. Plan: SW to follow for plan of discharge home and to confirm home oxygen and concentrator set up for discharge through [facility] and any further identified discharge planning needs. YOKO Piña Discharge Planning/Care Management CM Discharge Assessment Start: 12/03/23 15:28 Freq: Status: Active Protocol: Document 12/03/23 15:28 BF (Rec: 12/03/23 15:29 BF [id number]) Discharge Planning Assessment Assigned Lube Attendant YOKO Garcia DPOA/Assigned Designee Name none Advance Directives? No Advance Directives on File No History Provided By Patient,Medical Record Has Patient been admitted in last 30 No days? Prior Living Arrangements House Household Members friend(s) Type of transporation used prior to Drives own vehicle admit Independent with ADL's Yes Is patient alert and oriented? Yes Needs Assistance With Home Chores / Shopping Caregiver for Another No Barriers to Discharge No Discharge Plan Home Community Services Oxygen Therapy Transportation Arrangement Likely friend Referrals Initiated None needed Whiteboard Updated in Patient Room with Yes name and ext. # of Lube Attendant Review Status In Process Please Provide Date Initial DC 12/03/23 Assessment Was Performed Next Review Type Continued Stay Review
[2023-12-03] MEDS: cefTRIAXone 1,000 MG in SODIUM CHLORIDE 0.9% 100 ML 200 MG IV (20:15)
[2023-12-04] VITALS: BP 109/62; PULSE 92; RESP 17; TEMP 36.3; O2SAT 94
[2023-12-04] MEDS: ACETAMINOPHEN 325 MG TABLET 650 MG PO (00:37)
[2023-12-04 04:00] VITALS: BP 110/71; PULSE 62; RESP 18; TEMP 36.5; O2SAT 94
[2023-12-04 06:34] LABS: Add Manual Diff / Slide Review NO; Basophils Absolute Auto 100 /uL (0-100); Basophils Percent Auto 0.4 % (0-2); Eosinophils Absolute Auto 100 /uL (0-450); Eosinophils Percent Auto 0.7 % (2-4); Hematocrit 40.9 % (41-53); Hemoglobin 13.5 g/dL (13.5-17.5); Lymphocytes Absolute Auto 1000 /uL (1100-4500); Mean Corpuscular Hemoglobin 31.5 PG (26-34); Mean Corpuscular Volume 95.3 fL (80-100); Monocytes Absolute Auto 1500 /uL (0-900); Monocytes Percent Auto 10.6 % (3-14); Neutrophils Absolute Auto 11500 /uL (1500-7000); Neutrophils Percent Auto 81.3 % (50-75); Platelet Count 247 X10^3/uL (150-400); Red Blood Cell Count 4.29 X10^6/uL (4.5-5.9); Red Cell Distribution Width 14.2 % (11.6-14.8); White Blood Cell Count 14.1 X10^3/uL (4.5-11.0)
[2023-12-04 06:49] LABS: BUN Creatinine Ratio 27.7 (6-22); Blood Urea Nitrogen 23 mg/dL (9-20); Calcium 8.4 mg/dL (8.4-10.2); Carbon Dioxide 38 mmol/L (22-32); Chloride 96 mmol/L (98-107); Estimated Glomerular Filt Rate > 60 mL/min (>60); Glucose 106 mg/dL (80-110); HEMOLYSIS < 15 (0-50); Magnesium 2.1 mg/dL (1.6-2.3); Potassium 3.6 mmol/L (3.4-5.1); Sodium 136 mmol/L (137-145)
[2023-12-04 08:00] VITALS: BP 113/77; PULSE 69; RESP 24; TEMP 36.2; O2SAT 93
[2023-12-04] MEDS: POTASSIUM CHLORIDE 20 MEQ TAB PO (08:16)
[2023-12-04] MEDS: ASPIRIN EC 81 MG TABLET PO (08:17)
[2023-12-04] MEDS: HYDROCODONE/ACET 5/325 TABLET 1 TAB PO (08:17)
[2023-12-04] MEDS: NICOTINE 14 PATCH 14 MG TOP (08:17)
[2023-12-04] MEDS: TAMSULOSIN 0.4 MG CAPSULE 0.8 MG PO (08:17)
[2023-12-04] MEDS: ENOXAPARIN 40 MG/0.4 ML SYRINGE SUBCUT (08:17)
--- NOTE | 2023-12-04 12:20 | PM.DS.1 ---
History of Present Illness History of Present Illness Date Patient Seen: 12/04/23 Time Patient Seen: 08:50 Date of Onset of Symptoms: 12/03/23 Chief complaint: sent by PCP, leg swelling, rapid heart beat Narrative: Admission notes: 78 years old male with a past medical history of COPD on chronic home oxygen usually at 2 L, hypertension, chronic smoking and other medical issues presented emergency room for worsening shortness of breath. He is new to the area and lives with roommate. Apparently he has been increasingly short of breath with progressive lower extremity edema/dyspnea on exertion with significant orthopnea needing 2 pillows. Does have cough that is productive with whitish mucoid sputum. Denies any fever episodes. No chest pain. Denies any dizziness or loss of consciousness. Denies any nausea or vomiting. Apparently, he has needed increasing oxygen for the past 3 days and now out of oxygen from his cylinder but does have a oxygen concentrator which he could not use properly. Reports his oxygen tank will not be delivered until Tuesday. Tried nebulizers with inhalers and also was recently given a course of Z-Cliff in the outpatient setting with no clinical improvement. Denies any history of congestive heart failure and does not follow any fluid restriction or sodium restriction. In the ED noted to have significant lower extremity edema with decreased lung sounds at the base and hypoxemia with an O2 saturation of 92% on 4 L. He was tachypneic at 28. Subsequent workup included WBC at 12,700 with a hemoglobin of 13.1. Sodium of 138 with a BUN of 26 and a creatinine of 0.8. BNP was 4490. Chest x-ray was concerning for pulmonary edema but cannot rule out a possible right lower lobe opacities. Troponin was 0.035. Patient was given a dose of IV Lasix with nebulizers and initiated on oxygen supplementation in addition to IV Rocephin. Patient was admitted for further evaluation The patient experienced a 4.7 L net negative diuresis overnight and reported feeling significantly better in the morning. Echocardiogram returned showing severe pulmonary hypertension with moderate left ventricular dysfunction, and significant ectopy with frequent PACs and SVT had moderate aortic insufficiency and mild AI. He continued to feel significantly weak albeit improved. He has also had significant cough and sputum production over the past few days, with chest x-ray noting findings consistent with pneumonia. Discharge Providers Provider Date of admission: 12/02/23 22:43 Discharge Date: 12/04/23 Primary care physician: Doctor Rod MD Consults: 12/02/23 19:00 Consult to [facility] [place] - Placement Officer Stat Comment: 12/03/23 00:47 Consult to [facility] Placement Officer Routine Comment: Discharge provider: Duane Camacho MD Summary Hospital Course Discharge Diagnosis: 1. Acute systolic congestive heart failure. 2. Severe pulmonary hypertension, likely secondary to underlying COPD. 3. Right lower lobe pneumonia, likely community acquired. 4. Acute hypoxic respiratory failure due to numbers 1, 2 and 3. 5. Chronic hypoxic respiratory failure due to COPD and pulmonary hypertension. 6. Frequent PACs. 7. BPH. Hospital Course: 1. Acute systolic congestive heart failure. Treat with IV diuresis with a net 7.2 L negative fluid balance at the time of discharge. He was feeling significantly better and able to ambulate, with his oxygen level at baseline. He has home oxygen available and was interested in discharge home with oral diuretics, antibiotics and close outpatient follow up with his primary care provider. 2. Severe pulmonary hypertension, likely secondary to underlying COPD. 3. Right lower lobe pneumonia, likely community acquired. Continue IV ceftriaxone and azithromycin. Transition to oral antibiotics at the time of discharge. 4. Acute hypoxic respiratory failure due to numbers 1, 2 and 3. Resolved and at baseline at the time of discharge. 5. Chronic hypoxic respiratory failure due to COPD and pulmonary hypertension. 6. Frequent PACs. This was reported as possible atrial fibrillation in the admission note though there are clear P waves before each QRS on his EKG and no sign of atrial fibrillation on echocardiography. Continue to monitor. 7. Chronic tobacco use. Cessation is advised. Nicotine patch was provided. 8. BPH. Continue routine home tamsulosin. 9. Code status: Full code. This was defined on admission. Chest x-ray: Radiologist's impression: Patchy right lower lobe opacities may be related to chronic emphysematous changes and scarring versus superimposed acute consolidation. Echocardiogram: Radiologist's impression: Per Dr. Magali Carmona [facility] of Card[facility], verbally by phone and by this dictated report: Sinus rhythm with very frequent PACs and runs of SVT. Normal LV size and wall thickness. Mild global hypokinesis with mildly reduced LV systolic function estimated at 45-50%. Severe right atrial enlargement and mild right atrial enlargement.. Otherwise normal chamber sizes. Aortic valve leaflets are not well-seen but demonstrates reduced leaflet excursion. Cannot definitively exclude bicuspid aortic valve with pseudo raphae connecting right and left coronary leaflets. There is moderate associated aortic regurgitation And mild aortic stenosis with peak velocity of 2.6 m/s and mean gradient of 14 mmHg. Moderate central tricuspid regurgitation. Estimated PA systolic pressure is 75 mm Hg assuming RA pressure of 15 mm Hg. Borderline enlarged ascending aorta measuring 3.9 cm in diameter. No prior study available for comparison. Status at Discharge Cognitive/behavioral status at discharge: oriented Functional status at discharge: independent ambulation Overall status at discharge: patient is back to baseline Time Spent with Patient Time spent: Greater than 30 minutes Exam Vital Signs (past 8 hours): - 12/04/23 07:00 12/04/23 08:00 Temperature 97.2 F L Pulse Rate 69 Respiratory Rate 24 Blood Pressure 113/77 Pulse Oximetry 93 Oxygen Delivery Method Nasal Cannula Oxygen Flow Rate 2 Oxygen Delivery Method Nasal Cannula Oxygen Flow Rate 2 Narrative Exam Narrative: GENERAL: This is a cachectic thin male, extremely pleasant, in no apparent distress. Nasal cannula oxygen in place at 2 liters/minute with oxygen saturation 93%. EYES: Pupils equal round and reactive. Extraocular motions intact. No scleral icterus. No injection or drainage. ENT: Mucous membranes pink and moist. NECK: Trachea midline. No JVD, bruits or lymphadenopathy. Supple, nontender, no meningeal signs. CARDIOVASCULAR: Regular rate and rhythm without murmurs, gallops, or rubs. RESPIRATORY: Decreased breath sounds bilateral lung bases, scattered rhonchi, mid to end expiratory wheeze. GASTROINTESTINAL: Abdomen soft, non-tender, nondistended. EXTREMITIES: Trace pedal edema. NEUROLOGIC: Alert, oriented, speech fluent, full upper and lower motor strength, no focal deficits evident. DERMATOLOGIC: No rashes or skin lesions. Objective Labs 12/04/23 05:40 12/04/23 05:40 Labs: Laboratory Results - last 24 hr 12/04/23 05:40 WBC 14.1 H RBC 4.29 L Hgb 13.5 Hct 40.9 L MCV 95.3 MCH 31.5 MCHC 33.0 RDW 14.2 Plt Count 247 Neut % (Auto) 81.3 H Lymph % (Auto) 7.0 L [place] % (Auto) 10.6 Eos % (Auto) 0.7 L Baso % (Auto) 0.4 Neut # (Auto) 25045 H Lymph # (Auto) 1000 L [place] # (Auto) 1500 H Eos # (Auto) 100 Baso # (Auto) 100 Sodium 136 L Potassium 3.6 Chloride 96 L Carbon Dioxide 38 H BUN 23 H Creatinine 0.83 Estimated GFR > 60 BUN/Creatinine Ratio 27.7 H Glucose 106 Calcium 8.4 Magnesium 2.1 PFSH Social History household members: friend(s) Smoking Status: Current every day smoker alcohol intake: current Discharge Plan Discharge Plan Patient Disposition: Home Provider Discharge Comment: Followup with PCP 1 week Discharge orders & Medications Prescriptions: New nicotine 14 mg/24 hr Patch 24 Hour 14 mg topical DAILY Qty: 28 0RF furosemide 20 mg tablet 20 mg PO DAILY Qty: 30 0RF cefuroxime axetil 500 mg tablet 500 mg PO BID Qty: 14 0RF azithromycin 250 mg tablet 250 mg PO DAILY Qty: 4 0RF Continued albuterol sulfate 90 mcg/actuation HFA aerosol inhaler 2 puff inhalation Q6H Dulera 100-5 mcg/actuation HFA aerosol inhaler 2 puff inhalation BID tamsulosin 0.4 mg capsule 0.8 mg PO DAILY Follow up/Referrals: Doctor Velasco MD [Primary Care Provider] - Diet/Activity/Treatments Diet: Diet as Tolerated Skin/Wound/Dressing Care Report to your healthcare provider any signs of infection, such as:: chills, fever, night sweats and increased pain Visit Report/Discharge Packet Instructions: DI for Heart Failure Stand Alone Forms: Patient Portal/API, Stroke Signs & Symptoms Discharge Data Primary Care Provider: Doctor Rod Attending Provider: Lon Diaz Admit Date/Time: 12/02/23 22:43 Quality VTE Deep Vein Thrombosis/Pulmonary Embolism Present on Admission: No MIPS - Admit I confirm the patient?s Advance Care Plan is present, Code status is documented, Surrogate decision maker is in patient?s record [If Yes, STOP here]: Yes MIPS - Meds 'Current medications' to include all prescriptions, [id number] products, herbals, cannabis/cannabidiol products, and vitamin/mineral/dietary (nutritional) supplements. I have utilized all available resources to obtain, update, or review the patient?s current medications. [If Yes, STOP here]: Yes MIPS - DC The patient has a history of heart transplant or Left Ventricular Assist Device (LVAD). If yes, STOP here.: No The patient has current or prior documentation of left ventricular ejection fraction (LVEF) less than or equal to 40%, or moderate or severely depressed left ventricular systolic function.: No A. The patient was prescribed or already taking an Angiotensin-Converting Enzyme (MARIANA) Inhibitor, or Angiotensin Receptor Osmel (ARB).: No B. The patient was prescribed or already taking a beta-osmel. [If Yes to Both A & B, STOP here]: No Patient not prescribed/taking MARIANA or ARB, no reason given.: Yes Patient not prescribed/taking beta-osmel, no reason given.: Yes PROFEE Charge Codes Discharge inpatient/observation: [id number]
--- NOTE | 2023-12-04 12:31 | CM.DPNOTE ---
DCP Note VISUAL MERCHANDISING COORDINATOR reviewed EMR. Per hospitalist in morning rounds, cleared to dc home today. Per RN/pt report, pt has concentrator at home and that is good to go but his portable oxygen was delivered to wrong address. Per Pt, he reports he will be able to get home okay and then his roommate is going to go to his old address to p/u the oxygen. Pt denies any additional DCP/CM needs at this time. P: anticipate dc early afternoon with roommate, roommate to assist in getting portable oxygen for pt. Deny any CM/DCP needs. CM team will follow as needed. YOKO Humphries
--- NOTE | 2023-12-04 13:47 | PC.NURSE ---
Discharge Note Patient A&O, VSS, RA, no complaints of pain/discomfort. Discharge plan reviewed with patient, patient agreeable. Discharge packet reviewed with patient, all questions/concerns addressed. PIV discontinued. Patient able to dress self and pack all belongings with minimal assistance. Patient reminded to molded goods spot picker prescriptions at preferred pharmacy. Patient taken down via wheelchair to V.
--- NOTE | 2023-12-05 07:49 | CM.DPNOTE ---
Voicemail from [facility] at [facility] stating that Dtr recently requested Hospice info visit for the patient and they are in the process of reviewing his referral and have not confirmed that he meets criteria yet and not on their schedule yet and Dtr alerted them that pt was admitted. [facility] requesting pt's clinicals to review to help determine if pt meets Hospice criteria at this time. SW faxed requested clinicals including discharge summary from pt's discharge yesterday 12/04/23. YOKO Piña
== END 2023-12-04 13:20 | disposition home or self-care (01) ==
LOC: ED 20:52 → AC 22:43
PROVIDERS: Internal Medicine; Admitting Provider Internal Medicine; Emergency Provider Emergency Medicine; PCP Neuromusculoskeletal Medicine & OMM; Referring Provider Emergency Medicine; Visit Provider Internal Medicine
DX: I11.0 Hypertensive heart disease with heart failure (principal); I50.21 Acute systolic (congestive) heart failure; I27.20 Pulmonary hypertension, unspecified; J18.9 Pneumonia, unspecified organism; J96.01 Acute respiratory failure with hypoxia; J44.9 Chronic obstructive pulmonary disease, unspecified; Z99.81 Dependence on supplemental oxygen; F17.210 Nicotine dependence, cigarettes, uncomplicated; N40.0 Benign prostatic hyperplasia without lower urinary tract symptoms
CPT/HCPCS: 36415; 71045; 80048; 80053; 81001; 82550; 83690; 83735; 83880; 84100; 84484; 85025; 85610; 85730; 87086; 93005; 93306; 94640; 94762; 96365; 96366; 96367; 96372; 96375; 99284; G0378; A9270; J0696; J1650; J1940; J7613